=== PATIENT | male | born 1955 | race American Indian/Alaskan Native ===

== ENCOUNTER 2022-04-02 18:30 | Emergency (ER) | payer OTHER ==
[2022-04-02 18:38] VITALS: BP 123/81
--- NOTE | 2022-04-02 19:18 | XRay Report ---
Right forearm-2 views INDICATION: post fall arm pain. COMPARISON: None available. IMPRESSION: Comminuted fracture of the distal radius with mild impaction and slight dorsal angulatio n of the distal fracture component. Overlying cast material in place. No significant DJD. Mild surro unding swelling. Signer Name: Chuck Greenberg MD Signed: 04/02/2022 7:14 PM Workstation Name: [id number]
--- NOTE | 2022-04-02 20:49 | Cat Scan Report ---
NONENHANCED CT SCAN OF THE HEAD: INDICATION / CLINICAL INFORMATION: 66 years Male; Fall. TECHNIQUE: Routine CT head without contrast. All CT scans at this location are performed using CT dos e reduction for ALARA by means of automated exposure control. COMPARISON: None. FINDINGS: BRAIN / INTRACRANIAL CONTENTS: No intracranial sequela from the trauma; no scalp hematoma; no air-flu id level in the paranasal sinuses; incidental left supraorbital scalp lipoma No acute hemorrhage, mass effect, midline shift, hydrocephalus, or acute, large territorial infarct. No chronic infarct or focal atrophy. Focal low-attenuation areas due to chronic disease in the left superior frontal gyrus, in the rae radiata bilaterally. Normal brain volume and ventricular/sulcal size for age. No significant white matter abnormality. CRANIOCERVICAL JUNCTION: No significant abnormality. ORBITS: No significant abnormality of visualized orbits. SINUSES / MASTOIDS: Mucosal thickening in one of the right anterior ethmoid air cells and inferior me dial left frontal sinus ADDITIONAL FINDINGS: None. IMPRESSION: No intracranial sequela from the trauma Signer Name: Cheyenne Denis MD Signed: 04/02/2022 8:45 PM Workstation Name: [email or web address]
--- NOTE | 2022-04-02 20:51 | Cat Scan Report ---
Exam: CT cervical spine History: Fall; Technique: Contiguous thin cut axial images obtained through the cervical spine. Sagittal and rae l reconstructions performed by the technologist. All CT scans at this location are performed using CT dose reduction for ALARA by means of automated exposure control. Findings: No priors. There is no evidence of fracture or traumatic subluxation. Vertebral bodies are normal in height and alignment. Intervertebral disc spaces: C5-C6: Bulging disc; neuroforamina are normal No significant degenerative change seen in the uncinate or facet joints. No significant canal stenosi s or osseous foraminal narrowing. Surrounding soft tissues are grossly normal. Impression: No signs of acute bony trauma to the cervical spine. Signer Name: Cheyenne Denis MD Signed: 04/02/2022 8:47 PM Workstation Name: [email or web address]
[2022-04-02] MEDS ORDERED: ONDANSETRON 4 MG ODT TAB PO ONE (20:58)
[2022-04-02] MEDS ORDERED: IBUPROFEN 600 MG TAB PO ONE (20:58)
[2022-04-02] MEDS ORDERED: HYDROcodone/ACETAMINOPHEN 7.5-325MG TAB PO ONE (20:58)
--- NOTE | 2022-04-02 21:55 | Emergency Department Report ---
ED Fall HPI - General Chief Complaint: Fall Stated Complaint: RT ARM INJURY Source: patient Mode of arrival: Ambulatory - History of Present Illness Initial Comments: Patient is a 66-year-old [place] male with no past medical history who presents to the ED with complaint of acute onset right wrist and right forearm pain with swelling after he tripped, lost balance when coming down a 4 foot ladder about 6 hours ago and landed on his right wrist on the lower back. Patient states that he landed on a concrete floor during the fall and since then he has not been able to perform any active range of motion of the right wrist and right forearm because of pain. Patient denies head or neck injuries, loss of consciousness, nausea and vomiting, chest pain or shortness of breath, back pain, numbness and tingling or weakness of upper and lower extremities bilaterally, change in vision, dizziness or syncope and seizures. 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 denies: headache, neck pain, numbness, weakness, chest paint, shortness of breath, abdominal pain, hematuria, unable to walk, lightheaded, vertigo - Related Data Previous Rx's Medication Instructions Recorded Last Taken Type Amoxicillin/K Clav Tab [Augmentin 1 tab PO Q12HR #20 tab 04/02/22 Unknown Rx 875 mg] Baclofen 20 mg PO Q12H PRN #30 tab 04/02/22 Unknown Rx HYDROcodone/APAP 5-325 [Chase 1 each PO Q6HR PRN #12 tablet 04/02/22 Unknown Rx 5/325] Ibuprofen [Motrin] 600 mg PO Q8H PRN #30 tablet 04/02/22 Unknown Rx Allergies Allergy/AdvReac Type Severity Reaction Status Date / Time No Known Allergies Allergy Verified 04/02/22 18:37 ED Review of Systems ROS: Stated complaint: RT ARM INJURY Other details as noted in HPI Constitutional: denies: chills, fever Eyes: denies: eye pain, eye discharge, vision change ENT: denies: ear pain, throat pain Respiratory: denies: cough, shortness of breath, wheezing Cardiovascular: denies: chest pain, palpitations Endocrine: no symptoms reported Gastrointestinal: denies: abdominal pain, nausea, diarrhea Genitourinary: denies: urgency, dysuria Musculoskeletal: joint swelling (Right wrist and forearm pain and swelling), arthralgia (Right wrist and forearm pain and swelling). denies: back pain, myalgia Skin: denies: rash, lesions Neurological: denies: headache, weakness, paresthesias Psychiatric: denies: anxiety, depression Hematological/Lymphatic: denies: easy bleeding, easy bruising ED Past Medical Hx - Medications Home Medications: Home Medications Medication Instructions Recorded Confirmed Last Taken Type Amoxicillin/K Clav Tab [Augmentin 1 tab PO Q12HR #20 tab 04/02/22 Unknown Rx 875 mg] Baclofen 20 mg PO Q12H PRN #30 tab 04/02/22 Unknown Rx HYDROcodone/APAP 5-325 [Chase 1 each PO Q6HR PRN #12 tablet 04/02/22 Unknown Rx 5/325] Ibuprofen [Motrin] 600 mg PO Q8H PRN #30 tablet 04/02/22 Unknown Rx ED Physical Exam - General Limitations: Language Barrier General appearance: alert, in no apparent distress - Head Head exam: Present: atraumatic, normocephalic, normal inspection - Eye Eye exam: Present: normal appearance, PERRL, EOMI Pupils: Present: normal accommodation - ENT ENT exam: Present: normal exam, normal orophraynx, mucous membranes moist, TM's normal bilaterally, normal external ear exam - Neck Neck exam: Present: normal inspection, full ROM. Absent: tenderness - Respiratory Respiratory exam: Present: normal lung sounds bilaterally. Absent: respiratory distress, wheezes, rales, rhonchi, chest wall tenderness, accessory muscle use, decreased breath sounds, prolonged expiratory - Cardiovascular Cardiovascular Exam: Present: regular rate, normal rhythm, normal heart sounds. Absent: systolic murmur, diastolic murmur, rubs, gallop - GI/Abdominal GI/Abdominal exam: Present: soft, normal bowel sounds. Absent: tenderness, guarding, rebound, hyperactive bowel sounds, hypoactive bowel sounds, organomegaly - Extremities Exam Extremities exam: Present: normal inspection, tenderness (Palpable right wrist and right forearm tenderness with mild swelling and limited range of motion due to pain), normal capillary refill, joint swelling (Mild right wrist and forearm swelling). Absent: full ROM (Limited range of motion of right wrist and forearm due to pain), pedal edema, calf tenderness - Back Exam Back exam: Present: normal inspection, full ROM. Absent: tenderness, CVA tenderness (R), CVA tenderness (L), muscle spasm, paraspinal tenderness, vertebral tenderness - Neurological Exam Neurological exam: Present: alert, oriented X3, CN II-XII intact, normal gait, reflexes normal - Psychiatric Psychiatric exam: Present: normal affect, normal mood - Skin Skin exam: Present: warm, dry, intact, normal color. Absent: rash ED Course Vital Signs 04/02/22 18:34 Temperature 98.1 F Pulse Rate 91 H Respiratory 20 Rate Blood Pressure 123/81 [Right] O2 Sat by Pulse 99 Oximetry ED Medical Decision Making - Radiology Data Radiology results: report reviewed, image reviewed [facility] [address] [place] [address] XRay Report Signed Patient: ODETTE KUNZ MR#: [id number] : 1955 Acct:[id number] Age/Sex: 66 / M ADM Date: 04/02/22 Loc: ED Attending Dr: Ordering Physician: PATRICIA CLEMENTE MD Date of Service: 04/02/22 Procedure(s): XR forearm RT Accession Number(s): [id number] cc: PATRICIA CLEMENTE MD Fluoro Time In Minutes: Right forearm-2 views INDICATION: post fall arm pain. COMPARISON: None available. IMPRESSION: Comminuted fracture of the distal radius with mild impaction and slight dorsal angulation of the distal fracture component. Overlying cast material in place. No significant DJD. Mild surrounding swelling. Signer Name: Chuck Greenberg MD Signed: 04/02/2022 7:14 PM Workstation Name: [id number] Transcribed By: JW Dictated By: Chuck Greenberg MD Electronically Authenticated By: Chuck Greenberg MD Signed Date/Time: 04/02/221913 DD/ 12 TD/TT: - Medical Decision Making This is a 66-year-old [place] male with no past medical history who presents to the ED with complaint of acute onset right wrist and right forearm pain with swelling after he tripped, lost balance when coming down a 4 foot ladder about 6 hours ago and landed on his right wrist on the lower back. Patient states that he landed on a concrete floor during the fall and since then he has not been able to perform any active range of motion of the right wrist and right forearm because of pain. In the ED, patient is alert and oriented x3 and is not in any distress. Patient was treated for pain in the ED. Head CT scan without contrast showed no acute intracranial abnormalities or hemorrhage. The C-spine CT scan without contrast showed no cervical disc fractures or subluxation. The right forearm x-ray showed a comminuted fracture of the distal radius with mild impaction and slight dorsal angulation of the distal fracture component. On reevaluation, patient's pain is well controlled medications. Patient right wrist was splinted with sugar-tong splint and the right arm immobilized in an arm sling. On reevaluation, patient's right arm and wrist are neurovascularly intact following application of the splint. Patient was discharged home on pain medications and given referral to the orthopedic surgeon on-call Dr. Ross for follow-up. Patient is advised to return to the ED immediately if symptoms get worse. Patient was otherwise advised to contact Dr. Ross's office first thing in the morning on , April 03, 2022 to schedule a follow-up appointment. Critical care attestation.: If time is entered above; I have spent that time in minutes in the direct care of this critically ill patient, excluding procedure time. ED Disposition Clinical Impression: Contusion of right forearm, initial encounter, Chronic ethmoidal sinusitis Closed fracture of distal end of right radius Qualifiers: Encounter type: initial encounter Fracture morphology: Colles' Qualified Code(s): S52.531A - Colles' fracture of right radius, initial encounter for closed fracture Disposition: 01 HOME / SELF CARE / HOMELESS Is pt being admited?: No Does the pt Need Aspirin: No Condition: Stable Instructions: Cast or Splint Care, Adult, [id number], Radial Fracture Rehab- SportsMed, Wrist Fracture Treated With Immobilization, [id number], Contusion, Zwes-wm-Racy, Sinusitis, Adult, [id number] Additional Instructions: The right forearm x-ray showed a comminuted fracture of the distal radius with mild impaction and slight dorsal angulation of the distal fracture component. Therefore take medication with food, drink plenty of fluids, follow-up with the orthopedic surgeon Dr. Ross for further evaluation. Return to the ED immediately if symptoms get worse. Prescriptions: Amoxicillin/K Clav Tab [Augmentin 875 mg] 1 tab PO Q12HR #20 tab Baclofen 20 mg PO Q12H PRN #30 tab PRN Reason: Muscle Spasm Ibuprofen [Motrin] 600 mg PO Q8H PRN #30 tablet PRN Reason: Pain HYDROcodone/APAP 5-325 [Chase 5/325] 1 each PO Q6HR PRN #12 tablet PRN Reason: Pain Referrals: BHASKAR ROSS MD [Staff Physician] - 3-5 Days Time of Disposition: 22:25 Print Language: SETSWANA
== END 2022-04-02 23:08 | disposition home or self-care (01) ==
LOC: ED 18:30
DX: S52.531A Colles' fracture of right radius, initial encounter for closed fracture (principal); S50.11XA Contusion of right forearm, initial encounter; J32.2 Chronic ethmoidal sinusitis; W01.0XXA Fall on same level from slipping, tripping and stumbling without subsequent striking against object, initial encounter; Y93.89 Activity, other specified; Y92.89 Other specified places as the place of occurrence of the external cause; Y99.8 Other external cause status
CPT/HCPCS: 70450; 72125; 99285; J3490; Q0162

== ENCOUNTER 2022-04-10 07:39 | Day surgery (SDC) | payer OTHER ==
[~2022-04-10 07:39] MED LIST: ACETAMINOPHEN 500 MG TAB PO SCH; LACTATED RINGERS 1,000 ML IV SCH; MIDAZOLAM 2 MG/2 ML INJ IV SCH; ceFAZolin/STERILE WATER 2 GM/20 ML SYRINGE IV NR; fentaNYL 100 MCG/2 ML INJ IV PRN
--- NOTE | 2022-04-10 08:16 | Anesthesia Consultation ---
Anesthesia Consult and Med Hx Date of service: 04/10/22 - Airway Anesthetic Teeth Evaluation: Good, Bridges ROM Head & Neck: Adequate Mental/Hyoid Distance: Adequate Mallampati Class: Class I Intubation Access Assessment: Good - Pre-Operative Health Status ASA Pre-Surgery Classification: ASA2 Proposed Anesthetic Plan: General Nerve Block: supraclavicular - Pulmonary Hx Smoking: Yes (former smoker quit 30yrs ago) Hx Respiratory Symptoms: No - Cardiovascular System Hx Hypertension: Yes Hx Heart Attack/AMI: No - Central Nervous System Hx Psychiatric Problems: No - Endocrine Hx Renal Disease: No Hx Liver Disease: No Hx Insulin Dependent Diabetes: No Hx Non-Insulin Dependent Diabetes: No Hx Thyroid Disease: No - Additional Comments Anesthesia Medical History Comments: No hx anesthetic complications.
[2022-04-10] MEDS ORDERED: BUPIVACAINE-EPINEPHRINE/PF 0.25%-1:200,000 (30 ML) VIAL INFILTRATI ONE (08:17)
--- NOTE | 2022-04-10 08:17 | Anesthesia Day of Surgery ---
Anesthesia Day of Surgery - Day of Surgery Patient Examined: Yes Patient H&P Reviewed: Yes Patient is NPO: Yes
[2022-04-10] MEDS ORDERED: LIDOCAINE MPF (2%) 20 MG/1 ML VIAL 5 ML ONE (10:29)
[2022-04-10] MEDS ORDERED: propofoL 200 MG/20 ML VIAL IV ONE (10:29)
[2022-04-10] MEDS ORDERED: BUPIVACAINE/PF (0.5%) 5 MG/1 ML 30 ML VIAL INFILTRATI ONE ×2 (11:42→11:51)
[2022-04-10] MEDS ORDERED: ePHEDrine SULFATE 50 MG/1 ML INJ ONE (11:44)
--- NOTE | 2022-04-10 12:15 | Procedure Note ---
Date of procedure: 04/10/22 Pre-op diagnosis: Displaced right distal radius fracture Post-op diagnosis: same Procedure: Closed reduction insertion of intramedullary nail right distal radius Procedure The patient was brought to the OR after being given a axillary nerve block for postop pain management, she was placed on the OR table in supine position following induction with MAC anesthesia the patient's right upper extremity was prepped and draped in the usual sterile manner. A timeout procedure was done to identify the patient and the correct operative site next the arm was then exsanguinated followed by inflation of the pneumatic tourniquet to 250 mmHg using C arm the fracture was then manipulated into a more reduced or anatomic position the right distal radius was then held in place via temporary K wire fixation following this an incision was made over the Ivette's tubercle this was then taken down sharply through skin and subcu care was taken to protect the soft tissue structures next using a 0.62 K wire the distal entry portal was established this was then overreamed next using the broach the distal fragment as well as the medullary canal proximally were aligned following this a size 2 micro nail was inserted using the the targeting device 3 screws were inserted into the distal fragment followed by 2 placed dorsally in the proximal fragment AP and lateral views were obtained showing good reduction of the fracture and placement of our hardware. Next the wounds were then copiously irrigated and was closed in a standard routine fashion postop dressings were applied as well as a well-padded forearm splint. Anesthesia: GETA Surgeon: BHASKAR MARKHAM (Aaron Trevino, 1st assist) Estimated blood loss: minimal Pathology: none Condition: stable Disposition: PACU
[2022-04-10] MEDS ORDERED: KETOROLAC 30 MG/1 ML INJ ONE (12:32)
[2022-04-10] MEDS ORDERED: dexAMETHasone 20 MG/5 ML VIAL ONE (12:32)
[2022-04-10] MEDS ORDERED: PHENYLEPHRINE/NS 1,000 MCG/10 ML SYRINGE (OR USE) IV ONE (12:32)
[2022-04-10] MEDS ORDERED: ONDANSETRON 4 MG/2 ML INJ ONE (12:32)
[2022-04-10] MEDS ORDERED: SODIUM CHLORIDE 0.9% IRR 1,500 ML BOTTLE IR ONE (12:54)
[2022-04-10 13:31] VITALS: BP 135/74
--- NOTE | 2022-04-10 13:51 | XRay Report ---
INTRAOPERATIVE FLUOROSCOPY: RIGHT WRIST INDICATION / CLINICAL INFORMATION: RT WRIST IM NAIL. TECHNIQUE: Intraoperative spot images were obtained during the procedure. FINDINGS: Intraoperative images from ORIF of the right wrist. Please refer to operative report for further information. Fluoroscopy Time 0.6 minutes. Fluoroscopy Images: 2. Signer Name: Arash Casanova MD Signed: 04/10/2022 1:47 PM Workstation Name: [email or web address]
--- NOTE | 2022-04-10 14:20 | Post Anesthesia Evaluation ---
- Post Anesthesia Evaluation Patient Participated: Yes Airway Patent: Yes Stable Respiratory Function: Yes Nausea/Vomiting: No Temp > 96.8F: Yes Pain Manageable: Yes Adequeate Hydration: Yes Anesthesia Complications: No Block Receding Appropriately: Yes
== END 2022-04-10 14:40 | disposition home or self-care (01) ==
LOC: OR 07:39
PROVIDERS: ATTEND Orthopaedic Surgery
DX: S52.531A Colles' fracture of right radius, initial encounter for closed fracture (principal); Z20.822 Contact with and (suspected) exposure to COVID-19; Z87.891 Personal history of nicotine dependence; Z79.899 Other long term (current) drug therapy; Z98.49 Cataract extraction status, unspecified eye; I10 Essential (primary) hypertension; W11.XXXA Fall on and from ladder, initial encounter; Y93.89 Activity, other specified; Y92.89 Other specified places as the place of occurrence of the external cause; Y99.8 Other external cause status
CPT/HCPCS: 25606; 64415; 64417; 73100; C1713; J0690; J1100; J1885; J2250; J2370; J2405; J2704; J3010; J3490; J7120; U0003

== ENCOUNTER 2022-04-28 10:58 | Outpatient (CLI) | payer OTHER ==
--- NOTE | 2022-04-28 12:29 | XRay Report ---
RIGHT WRIST 2 VIEWS INDICATION: M25.531 PAIN IN R WRIST, S52.501A FRACTURE LOWER RIGHT RADIUS. COMPARISON: Operative films dated 04/10/2022 IMPRESSION: The internally fixated distal radial fracture appears unchanged in position and alignmen t since the operative films dated 04/10/2022. Subtle calcified callus is identified at the fracture sit e although fracture lines remain evident. The remaining bony structures are intact. No significant j oint pathology. A splint has been applied. Signer Name: Sandeep Landis Jr, MD Signed: 04/28/2022 12:25 PM Workstation Name: [id number]
== END 2022-04-28 10:59 | disposition home or self-care (01) ==
LOC: XRAY 10:58
PROVIDERS: ATTEND Orthopaedic Surgery
DX: S52.501A Unspecified fracture of the lower end of right radius, initial encounter for closed fracture (principal); S52.531A Colles' fracture of right radius, initial encounter for closed fracture; M25.531 Pain in right wrist; X58.XXXA Exposure to other specified factors, initial encounter; Y93.89 Activity, other specified; Y92.89 Other specified places as the place of occurrence of the external cause; Y99.8 Other external cause status

== ENCOUNTER 2022-07-16 09:12 | Outpatient (CLI) | payer OTHER ==
--- NOTE | 2022-07-16 10:12 | XRay Report ---
XR wrist 3+V RT INDICATION: S52.501A FRACTURE OF LOWER END OF RT RADIUS. COMPARISON: 04/28/2022 FINDINGS: Previous fixation of the distal radius is unchanged in alignment. No hardware fracture or malalignmen t. Signer Name: Mamadou Paul MD Signed: 07/16/2022 10:08 AM Workstation Name: [id number]
== END 2022-07-16 09:13 | disposition home or self-care (01) ==
LOC: XRAY 09:12
PROVIDERS: ATTEND Orthopaedic Surgery
DX: S52.501A Unspecified fracture of the lower end of right radius, initial encounter for closed fracture (principal); X58.XXXA Exposure to other specified factors, initial encounter; Y93.89 Activity, other specified; Y92.89 Other specified places as the place of occurrence of the external cause; Y99.8 Other external cause status